=== PATIENT | male | born 1925 | race Caucasian/White ===

== ENCOUNTER 2017-03-20 23:28 | Inpatient (IN) | payer MEDICARE, MEDICAID ==
--- NOTE | 2017-03-20 23:51 | RAD ---
CHEST 1 VIEW: Date: 03/20/17 HISTORY: Cough. Sepsis. COMPARISON: Chest radiograph from 2011. FINDINGS: There is elevation of left hemidiaphragm, which is chronic. There are linear opacities in both lung b ases. No pneumothorax. Moderate degenerative changes of the glenohumeral joints. IMPRESSION: Chronic changes. No acute intrathoracic abnormality. POS: [facility]
[2017-03-21] MEDS ORDERED: methylPREDNISolone Sod Succ/PF 125 MG/2 ML VIAL ONE
[2017-03-21] MEDS ORDERED: Water For Inject, Bacteriostat 30 ML ONE
[2017-03-21] MEDS ORDERED: Azithromycin 500 MG VIAL ONE
[2017-03-21 00:02] LABS: Bilirubin Negative (Negative); Blood, Urine Negative (Negative); Glucose, Urine (Dipstick) 100 mg/dL (Negative); Ketone, Urine Negative (Negative); Nitrite Negative (Negative); Protein, Urine (Dipstick) Trace mg/dL (Neg-Trace); Urobilinogen 0.2 mg/dL (0.2-1.0)
[2017-03-21 00:27] LABS: Lactic Acid - Sepsis 3.3 mmol/L (0.5-2.2)
[2017-03-21 00:30] LABS: ALT (SGPT) 16 U/L (8-55); AST (SGOT) 22 U/L (5-34); Alkaline Phosphatase 98 U/L (40-150); Anion Gap 16 mmol/L (10-20); BUN (Urea Nitrogen) 11 mg/dL (8.4-25.7); Bilirubin, Total 0.6 mg/dL (0.2-1.2); Calc. Creatinine Clearance 0 mL/min (70-130); Calcium 9.3 mg/dL (7.8-10.44); Carbon Dioxide 30 mmol/L (23-31); Chloride 98 mmol/L (98-107); Estimated GFR-MDRD 79; Globulin 3.3 g/dL (2.4-3.5); Protein, Total 7.9 g/dL (5.8-8.1)
[2017-03-21 00:32] LABS: #Basophils 0.1 thou/uL (0.0-0.2); #Eosinphils 0.1 thou/uL (0.0-0.7); #Lymphocytes 1.6 thou/uL (1.20-3.40); #Monocytes 1.3 thou/uL (0.11-0.59); #Neutrophils 15.7 thou/uL (1.40-6.50); %Basophils 0.3 % (0.0-1.0); %Eosinophils 0.5 % (0.0-10.0); %Lymphocytes 8.3 % (21.0-51.0); %Monocytes 7.1 % (0.0-10.0); Hematocrit 43.2 % (42.0-52.0); Red Blood Cell (RBC) Count 4.42 mill/uL (4.70-6.10); White Blood Cell (WBC) Count 18.7 thou/uL (4.8-10.8)
[2017-03-21] MEDS ORDERED: cefTRIAXone\\ROCEPHIN 2 GM in Sodium Chloride 0.9% 100 ML IVPB SCH (01:30)
--- NOTE | 2017-03-21 01:31 | PDOC.EVN ---
Event Note - Event Note Event Note: [id number] h&p dictated 1. Pneumonia 2. sepsis 3. HTN 4. DM type 2 plan: see orders
[2017-03-21] MEDS ORDERED: HumaLOG 300 UNITS/3 ML VIAL SC PRN (01:54)
[2017-03-21] MEDS ORDERED: Dextrose 5% in Water 1,000 ML IV PRN (01:54)
[2017-03-21] MEDS ORDERED: Dextrose 50% Abboject 50 ML SYRINGE SLOW IVP PRN (01:54)
[2017-03-21 02:15] LABS: #Basophils 0.1 thou/uL (0.0-0.2); #Eosinphils 0.1 thou/uL (0.0-0.7); #Lymphocytes 0.6 thou/uL (1.20-3.40); #Monocytes 1.4 thou/uL (0.11-0.59); #Neutrophils 16.8 thou/uL (1.40-6.50); %Basophils 0.5 % (0.0-1.0); %Eosinophils 0.3 % (0.0-10.0); %Lymphocytes 2.9 % (21.0-51.0); %Monocytes 7.3 % (0.0-10.0); Hematocrit 41.5 % (42.0-52.0); Mean Platelet Volume 9.3 fL (7.4-10.4); Red Blood Cell (RBC) Count 4.28 mill/uL (4.70-6.10); White Blood Cell (WBC) Count 18.8 thou/uL (4.8-10.8)
[2017-03-21 02:35] LABS: Anion Gap 16 mmol/L (10-20); BUN (Urea Nitrogen) 11 mg/dL (8.4-25.7); Calc. Creatinine Clearance 0 mL/min (70-130); Calcium 8.7 mg/dL (7.8-10.44); Carbon Dioxide 25 mmol/L (23-31); Chloride 101 mmol/L (98-107); Estimated GFR-MDRD 90
[2017-03-21 04:22] VITALS: BMI 33.2
--- NOTE | 2017-03-21 05:44 | HP ---
DATE OF ADMISSION: 03/21/2017 CHIEF COMPLAINT: Dyspnea. HISTORY OF PRESENT ILLNESS: The patient is an 89-year-old male with past medical history of hyperten lisa, diabetes mellitus type 2, history of remote lung injury, hyperlipidemia, and chronic respirator y failure who came to the ER complaining of dyspnea. The patient started having dyspnea in the last few days and dyspnea persisted and did have some cough also. Complains of fever and chills, fever up to 101.5, and the patient started feeling extremely tired, so the patient was brought to the ER. Up on ER arrival, the patient has fever of 101.5. Denies any chest pain, denies any palpitations, but c omplains of dyspnea. Denies any nausea. Denies any vomiting. PAST MEDICAL HISTORY: As per HPI. PAST SURGICAL HISTORY: Reviewed. SOCIAL HISTORY: Denies smoking, denies alcohol, and denies any drugs. FAMILY HISTORY: Positive for heart problems. REVIEW OF SYSTEMS: Constitutional: Positive for fever and chills. Positive for fatigue. Eyes: De nies any vision problems. Ears: Denies any hearing loss. Neck: Denies any neck pain. Cardiovascu lar system: Denies any chest pain. Respiratory system: Positive for dyspnea. Positive for cough. Cranial nerves system: Denies syncope. Psychiatric: Denies depression or anxiety. Integumentary: Denies any rash. All other review of systems are reviewed and are negative. PHYSICAL EXAMINATION: CONSTITUTIONAL/VITAL SIGNS: At the time of H&P performed, temperature 101.5, heart rate 84, blood pr essure 174/83. GENERAL: The patient appears tired. HEENT: Anterior nares patent. Nose normal. Ears normal. Teeth intact. Tongue is moist. NECK: Supple, no JVD. CARDIOVASCULAR: S1 and S2 present. Regular rate and rhythm. No murmurs, no rubs, no gallops. RESPIRATORY SYSTEM: Positive for wheezing. Positive for rhonchi. Diminished breath sounds present. No accessory muscles seen. GASTROINTESTINAL: Abdomen is soft and nontender. No guarding, no organomegaly, no masses felt. MUSCULOSKELETAL: Trace edema present. INTEGUMENTARY: No rashes seen. PSYCHIATRIC: Mood is appropriate at this time. CRANIAL NERVE SYSTEM: Cranial nerves intact. Follows commands. Strength intact. Sensory intact. LABORATORY DATA AND X-RAY FIDINGS: Labs at the time of H&P performed; sodium 140, potassium 3.9, chl oride 98, CO2 of 30, BUN of 11, creatinine 0.90. AST 22, ALT 16, alkaline phosphatase 98, total prot ein 7.9, white count 18.7, hemoglobin 14, platelet count is 155. UA is positive for glucose. Chest x-ray is positive for chronic changes. ASSESSMENT AND PLAN: The patient is an 89-year-old male. 1. Sepsis, probably secondary to pneumonia. Plan to start the patient on broad spectrum antibiotics . Plan to monitor the patient closely. Plan to check sputum for culture and sensitivity also and pl an to do flu test also. 2. Possible pneumonia. Continue IV antibiotics. Plan is to start the patient on breathing treatmen ts and IV steroids. We will monitor respiratory status closely. 3. Chronic respiratory failure. Continue oxygen nasal cannula. 4. History of hypertension. Monitor blood pressure. Continue blood pressure medications. 5. History of diabetes mellitus type 2. Monitor blood sugars. We will do insulin sliding scale. The case was discussed in detail with the patient.
[2017-03-21] MEDS: methylPREDNISolone Sod Succ/PF 125 MG/2 ML VIAL IVP SCH ×2 (06:12→10:29)
[2017-03-21] MEDS: HumaLOG 300 UNITS/3 ML VIAL SC PRN ×3 (06:27→17:09)
[2017-03-21 08:40] LABS: Lactic Acid - Sepsis 3.5 mmol/L (0.5-2.2)
--- NOTE | 2017-03-21 09:55 | PDOC.PN ---
- Subjective Encounter Start Date: 03/21/17 Encounter Start Time: 10:00 Subjective: Patient breathing easier now than in ER. Some sort of lung injury in past -: states he "coughed up" half his left lung in past. - Objective MAR Reviewed: Yes Vital Signs & Weight: Vital Signs (12 hours) Temp Pulse Resp BP Pulse Ox 03/21/17 08:03 98.1 F 91 20 141/77 H 91 L 03/21/17 06:43 94 L 03/21/17 06:40 82 16 94 L 03/21/17 04:44 99.3 F 82 20 03/21/17 04:23 99.3 F 82 20 153/75 H 94 L Weight Weight 199 lb 9.6 oz Result Diagrams: 03/21/17 02:08 03/21/17 02:08 Additional Labs: Accuchecks 03/21/17 06:11 POC Glucose 272 H Phys Exam - Physical Examination Constitutional: NAD HEENT: moist MMs Respiratory: no rhonchi decreased BS on Left more than Right Cardiovascular: RRR, no significant murmur Gastrointestinal: soft, positive bowel sounds Neurological: non-focal, moves all 4 limbs Psychiatric: normal affect Dx/Plan (1) Sepsis Code(s): A41.9 - SEPSIS, UNSPECIFIED ORGANISM Status: Acute Comment: On Rocephin and Levofloxacin, possibly due to pneumonia with respiratory failure, CXR clear so will recheck after fluids. (2) Respiratory failure with hypoxia Code(s): J96.91 - RESPIRATORY FAILURE, UNSPECIFIED WITH HYPOXIA Status: Acute Qualifiers: Chronicity: acute on chronic Qualified Code(s): J96.21 - Acute and chronic respiratory failure with hypoxia Comment: Will consult pulmonolgy (3) Hypertension Code(s): I10 - ESSENTIAL (PRIMARY) HYPERTENSION Status: Chronic Comment: With hypertensive emergency on arrival to ER, now improved. Will resume home lisinopril and metoprolol to prevent worsening with fluid administration for sepsis. (4) Diabetes mellitus type 2 in obese Code(s): E11.69 - TYPE 2 DIABETES MELLITUS WITH OTHER SPECIFIED COMPLICATION; E66.9 - OBESITY, UNSPECIFIED Status: Chronic Comment: Resume metformin, on mod ISS (5) Hyperlipidemia Code(s): E78.5 - HYPERLIPIDEMIA, UNSPECIFIED Status: Chronic Comment: Resume atorvastatin 10mg - Plan cont current plan of care, continue antibiotics * .
[2017-03-21] MEDS: Sodium Chloride 0.9% 1,000 ML IV SCH ×2 (10:30→17:00)
[2017-03-21 11:18] LABS: Troponin I 0.027 ng/mL (< 0.028)
[2017-03-21] MEDS ORDERED: Bisacodyl 5 MG TAB PO PRN (11:24)
--- NOTE | 2017-03-21 16:55 | CON ---
DATE OF CONSULTATION: 03/21/2017 CONSULTING PHYSICIAN: Dr. Stewart from the [facility]. REASON FOR CONSULTATION: Pneumonia. HISTORY OF PRESENT ILLNESS: Mr. Lozano is an 89-year-old male. The patient presented to the [facility] yesterday with fever, shortness of breath, and cough. He has a history of what sounds to be left d iaphragmatic paralysis after an injury back in the late 1980s. He is feeling better today after gett ing antibiotics last night. PAST MEDICAL HISTORY: 1. Left diaphragmatic paralysis. 2. Hypertension. 3. Diabetes mellitus, type 2. PAST SURGICAL HISTORY: None. SOCIAL HISTORY: Lifetime nonsmoker, does not consume alcohol. 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 ALLERGIES: None. MEDICATIONS PRIOR TO ADMISSION: Flomax, metformin, atorvastatin, metoprolol, furosemide, Nexium, pot assium chloride, lisinopril, and allopurinol. REVIEW OF SYSTEMS: Otherwise, negative. PHYSICAL EXAMINATION: VITAL SIGNS: Temperature 98.1, pulse 84, respirations 18, O2 sat 94% on 3 liters, blood pressure 177 /99. GENERAL: He is awake, alert, pleasant, in no distress. HEENT: Unremarkable. NECK: Without adenopathy, JVD, or bruits. LUNGS: He has diminished breath sounds in the left base, right side clear. CARDIOVASCULAR: S1, S2 regular, without murmur. ABDOMEN: Soft, obese, nontender, nondistended. EXTREMITIES: Without clubbing or cyanosis. He has some skin breakdown over his left diez. LABORATORY DATA: Sodium 138, potassium 3.9, chloride 101, CO2 25, BUN 11, creatinine 0.8, glucose 22 6. Troponin 0.027. White blood cell count 18.8, hematocrit 41.5, platelet count 149. Chest x-ray s hows left diaphragmatic elevation. ASSESSMENT: 1. Probable pneumonia -- difficult to tell on x-ray if symptoms certainly would match. 2. Advanced age. 3. History of left diaphragmatic paralysis. RECOMMENDATIONS: The patient has improved. I would recommend continuing him on the breathing treatm ents, IV antibiotics, and oxygen. I would also consider lowering his steroid dose as he is unlikely to tolerate methylprednisolone at this higher dose. Thank you for the referral. I will be glad to assist in his care.
[2017-03-21] MEDS: Metoprolol Tartrate 50 MG TAB PO SCH (20:37)
[2017-03-21] MEDS: Docusate 100 MG CAP PO SCH (20:37)
[2017-03-21] MEDS: Atorvastatin Calcium 10 MG TAB PO SCH (20:37)
[2017-03-22] MEDS: cefTRIAXone\\ROCEPHIN 1 GM in Syringe 10 ML SLOW IVP SCH (00:02)
[2017-03-22] MEDS: Sodium Chloride 0.9% 1,000 ML IV SCH ×2 (01:37→16:39)
[2017-03-22] MEDS: HumaLOG 300 UNITS/3 ML VIAL SC PRN ×3 (06:18→16:32)
--- NOTE | 2017-03-22 08:05 | PDOC.PN ---
- Subjective Encounter Start Date: 03/22/17 Encounter Start Time: 08:30 Subjective: Patient breathing a bit easier today. Cough improving. No fever. - Objective MAR Reviewed: Yes Vital Signs & Weight: Vital Signs (12 hours) Temp Pulse Resp BP BP Pulse Ox 03/22/17 07:32 97.5 F L 94 18 172/80 H 92 L 03/22/17 06:49 82 16 92 L 03/22/17 02:39 98 03/22/17 02:17 12 03/22/17 00:02 98.2 F 80 18 141/81 H 92 L 03/21/17 22:40 82 16 03/21/17 20:37 97.9 F 86 18 03/21/17 20:13 97.9 F 86 18 183/98 H 93 L Weight Weight 199 lb 9.6 oz I&O: 03/21/17 03/22/17 03/23/17 06:59 06:59 06:59 Intake Total 650 Balance 650 Result Diagrams: 03/21/17 02:08 03/21/17 02:08 Additional Labs: Accuchecks 03/22/17 03/21/17 03/21/17 06:00 21:35 17:06 POC Glucose 203 H 263 H 318 H 03/21/17 10:48 POC Glucose 347 H Phys Exam - Physical Examination Constitutional: NAD HEENT: moist MMs course BS bilaterally, worse in left base Cardiovascular: RRR Gastrointestinal: soft, positive bowel sounds Musculoskeletal: no edema Neurological: non-focal, moves all 4 limbs Psychiatric: normal affect, A&O x 3 Deviation from normal: a little mentally slow Dx/Plan (1) Sepsis Code(s): A41.9 - SEPSIS, UNSPECIFIED ORGANISM Status: Acute Comment: On Rocephin and Levofloxacin, possibly due to pneumonia with respiratory failure, repeat CXR after hydration with infiltrate developing in left base. (2) Respiratory failure with hypoxia Code(s): J96.91 - RESPIRATORY FAILURE, UNSPECIFIED WITH HYPOXIA Status: Acute Qualifiers: Chronicity: acute on chronic Qualified Code(s): J96.21 - Acute and chronic respiratory failure with hypoxia Comment: Appreciate Dr. Adler's input on this patient (3) Hypertension Code(s): I10 - ESSENTIAL (PRIMARY) HYPERTENSION Status: Chronic Comment: With hypertensive emergency on arrival to ER, now improved. Will resume home lisinopril and metoprolol to prevent worsening with fluid administration for sepsis. (4) Diabetes mellitus type 2 in obese Code(s): E11.69 - TYPE 2 DIABETES MELLITUS WITH OTHER SPECIFIED COMPLICATION; E66.9 - OBESITY, UNSPECIFIED Status: Chronic Comment: Resume metformin, on mod ISS (5) Hyperlipidemia Code(s): E78.5 - HYPERLIPIDEMIA, UNSPECIFIED Status: Chronic Comment: Resume atorvastatin 10mg - Plan cont current plan of care, continue antibiotics, DVT proph w/lovenox, DVT proph w/SCDs * . - Discharge Day Encounter end time: 08:50
[2017-03-22] MEDS ORDERED: Lisinopril 20 MG TAB PO SCH (09:00)
[2017-03-22] MEDS ORDERED: Lisinopril 10 MG TAB PO SCH (09:00)
[2017-03-22] MEDS: Metoprolol Tartrate 50 MG TAB PO SCH ×2 (09:20→20:04)
[2017-03-22] MEDS: Docusate 100 MG CAP PO SCH ×2 (09:20→20:05)
[2017-03-22] MEDS: Enoxaparin Sodium 40 MG/0.4 ML SYRINGE SC SCH (09:21)
--- NOTE | 2017-03-22 10:02 | RAD ---
FRONTAL AND LATERAL IMAGING OF THE CHEST: Date: 03-22-17 Comparison: 03-20-17 History: Sepsis, fever, chills. FINDINGS: There is marked elevation of the left hemidiaphragm. There is focal opacity in the left lung base med ially abutting the elevated left hemidiaphragm. There is no pneumothorax. Mild increased linear densi ty in the medial right lung base suggest volume loss or scar, stable. When compared to the 04-07-11 exam, the elevated left hemidiaphragm is stable but the focal opacity ad jacent to the left hemidiaphragm is new. IMPRESSION: 1. Elevated left hemidiaphragm with focal opacity adjacent to the elevated left hemidiaphragm suggest ing left basilar infectious pneumonitis, aspiration and/or volume loss. Possible left pleural effusio n. 2. Follow up imaging via radiographs following treatment and/or CT suggested. POS: [facility]
--- NOTE | 2017-03-22 12:59 | PRG ---
DATE OF SERVICE: 03/22/2017 SUBJECTIVE: The patient feels better. OBJECTIVE: VITAL SIGNS: Temperature 97.5, pulse 94, respirations 18, O2 sats 98% on 3 liters and blood pressure 172/80. HEENT: Unremarkable. NECK: Without adenopathy or JVD. LUNGS: Diminished breath sounds in the left base compared to right. CARDIAC: S1 and S2 regular. ABDOMEN: Soft. EXTREMITIES: No edema. LABORATORY AND X-RAY FINDINGS: Chest x-ray shows no changes. ASSESSMENT: 1. Probable pneumonia. 2. History of paralyzed left hemidiaphragm. PLAN: Go ahead and convert the patient over to oral steroids. I would anticipate that he can probab ly be discharged tomorrow.
[2017-03-22] MEDS: hydrALAZINE 20 MG/ML VIAL SLOW IVP PRN (16:30)
[2017-03-22] MEDS ORDERED: Acetaminophen 325 MG TAB PO PRN (18:47)
[2017-03-22] MEDS: Atorvastatin Calcium 10 MG TAB PO SCH (20:04)
[2017-03-22] MEDS: predniSONE 20 MG TAB PO SCH (20:05)
[2017-03-23] MEDS: cefTRIAXone\\ROCEPHIN 1 GM in Syringe 10 ML SLOW IVP SCH (00:19)
[2017-03-23] MEDS: Docusate 100 MG CAP PO SCH (08:44)
[2017-03-23] MEDS: predniSONE 20 MG TAB PO SCH (08:44)
[2017-03-23] MEDS: Metoprolol Tartrate 50 MG TAB PO SCH (08:44)
[2017-03-23] MEDS: Enoxaparin Sodium 40 MG/0.4 ML SYRINGE SC SCH (08:44)
[2017-03-23] MEDS: HumaLOG 300 UNITS/3 ML VIAL SC PRN ×2 (08:50→12:19)
[2017-03-23 09:00] LABS: Hematocrit 42.2 % (42.0-52.0); Mean Platelet Volume 8.6 fL (7.4-10.4); Red Blood Cell (RBC) Count 4.27 mill/uL (4.70-6.10); White Blood Cell (WBC) Count 20.1 thou/uL (4.8-10.8)
[2017-03-23] MEDS ORDERED: Lisinopril 20 MG TAB PO SCH (09:00)
[2017-03-23 09:28] LABS: Band 4 % (5-11); Neutrophil 75 % (42-75)
--- NOTE | 2017-03-23 10:00 | PRG ---
DATE OF SERVICE: 03/23/2017 Mr. Lozano is doing well and has no acute complaints. PHYSICAL EXAMINATION: VITAL SIGNS: Temperature is 97.8, pulse 74, blood pressure 187/86, O2 saturation 96% on 3 liters. HEENT: Unremarkable. NECK: No JVD. LUNGS: Diminished breath sounds in the left base, right side clear. CARDIAC: S1 and S2 regular. ABDOMEN: Soft. EXTREMITIES: No edema. LABORATORY DATA: White blood cell count 20, hematocrit 42, platelet count 174. ASSESSMENT: 1. Pneumonia. 2. Paralyzed left hemidiaphragm. PLAN: The patient is probably close to being able to be discharged. I would send him home on Levaqu in and Omnicef for a total of 7 days and taper steroids over 2 weeks.
[2017-03-23 10:28] VITALS: TEMP 97.6
[2017-03-23] MEDS: hydrALAZINE 20 MG/ML VIAL SLOW IVP PRN (10:41)
[2017-03-23] MEDS ORDERED: Amlodipine 10 MG TAB PO SCH (11:00)
[2017-03-23] MEDS ORDERED: Labetalol HCl 100 MG/20 ML VIAL SLOW IVP SCH (11:00)
[2017-03-23 12:05] VITALS: BP 140/84
--- NOTE | 2017-03-23 12:11 | DIS ---
DISCHARGE DIAGNOSES: 1. Sepsis secondary to a left community acquired pneumonia. 2. Community-acquired pneumonia. 3. Chronic respiratory failure on oxygen. 4. History of hypertension. 5. Diabetes. HOSPITAL COURSE: While the patient was in the hospital the patient was thought to have a pneumonia o n chest x-ray. The patient was started on IV antibiotics. Blood cultures were drawn which showed St reptococcus x1 bottle. The other one has been negative up to this point. With the antibiotics that were in place, the patient's shortness of breath had improved significantly. His cough had improved significantly as well. He denied any new complaints. There were no new findings that were found as well during his hospital stay. Vital signs were stable. The patient was afebrile with a leukocytosi s. Due to the patient doing well, it was seen that the patient could be discharged soon. Pulmonolog ist had also seen the patient and had agreed that due to the patient doing much better the patient co uld safely be discharged home with the antibiotics of both Levaquin and Omnicef. We will continue th is regimen at home for the next 7 days as well as taper steroids. The patient was thankful and had a greed with the plan that was in place. The patient will be safely discharged home later today. The patient will follow up with primary care physician in 1 week. DISCHARGE CONDITION: Much improved than when he first came in. DISCHARGE ACTIVITY: As tolerated. DISCHARGE DIET: Diabetic, heart healthy diet. DISCHARGE MEDICATIONS: Please see discharge medication list. FOLLOWUP APPOINTMENTS: The patient will follow up with primary care physician in 1 week. DISCHARGE PLAN: Discharge planning was greater than 30 minutes.
== END 2017-03-23 14:14 | disposition home or self-care (01) | DRG 871 ==
LOC: ERS 23:28 → ERHOLD 03-21 00:40 → 2SW 03-21 04:06 → 2NO 03-22 09:58
PROVIDERS: ADMIT Internal Medicine; ATTEND Internal Medicine
DX: A41.9 Sepsis, unspecified organism (principal); J18.9 Pneumonia, unspecified organism; J96.21 Acute and chronic respiratory failure with hypoxia; I10 Essential (primary) hypertension; Z79.84 Long term (current) use of oral hypoglycemic drugs; E78.5 Hyperlipidemia, unspecified; E11.69 Type 2 diabetes mellitus with other specified complication; E66.9 Obesity, unspecified; Z68.33 Body mass index [BMI] 33.0-33.9, adult
CPT/HCPCS: 36415; 36416; 71010; 71020; 80053; 81003; 83605; 83880; 84484; 85025; 87040; 87077; 87149; 87186; 93005; 94640; 96361; 96365; 96367; 96375; A4216; G8978-GP-CK; G8979-GP-CK; G8980-GP-CK; G8987-GO-CI; G8988-GO-CI; G8989-GO-CI; J0360; J0456; J0696; J1650; J1956; J2920; J2930; J7050; J7506; J7620